=== PATIENT | male | born 2000 | race Caucasian/White ===

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

== ENCOUNTER 2021-04-03 14:21 | Emergency (ER) | payer OTHER, SELFPAY ==
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
[2021-04-03 14:29] VITALS: BP 121/71; PULSE 76; RESP 20; TEMP 36.8; O2SAT 97; BMI 28.1
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
== END 2021-04-03 17:39 | disposition home or self-care (01) ==
PROVIDERS: Emergency Provider Emergency Medicine; PCP Pediatrics
DX: S39.012A Strain of muscle, fascia and tendon of lower back, initial encounter (principal); V89.2XXA Person injured in unspecified motor-vehicle accident, traffic, initial encounter; Y93.89 Activity, other specified; Y92.410 Unspecified street and highway as the place of occurrence of the external cause; Y99.9 Unspecified external cause status
CPT/HCPCS: 72100; 99283

== ENCOUNTER 2021-06-13 13:30 | Emergency (ER) | payer OTHER, SELFPAY ==
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
[2021-06-13 13:56] VITALS: BP 135/72; PULSE 82; RESP 18; TEMP 36.9; O2SAT 98; BMI 26.6
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
== END 2021-06-13 16:41 | disposition home or self-care (01) ==
PROVIDERS: Emergency Provider Emergency Medicine Emergency Medical Services; PCP Pediatrics
DX: S09.90XA Unspecified injury of head, initial encounter (principal); W22.09XA Striking against other stationary object, initial encounter; Y93.89 Activity, other specified; Y92.59 Other trade areas as the place of occurrence of the external cause; Y99.0 Civilian activity done for income or pay
CPT/HCPCS: 70450; 99283; 99284